=== PATIENT | female | born 1975 | race Caucasian/White ===

== ENCOUNTER → 2023-11-26 | Outpatient (REF) | payer BC ==
[~2023-11-26] MED LIST: HYDROCODONE PO; MORP15TA4 OR; MULTIVIT PO; NABU500T OR; OMEP20TA7 OR; ORENCIA INJ; PRED5EL OR; PRED5TAB OR
== END ==
LOC: M LAB REF 13:29
PROVIDERS: ATTEND Registered Nurse
DX: Z12.4 Encounter for screening for malignant neoplasm of cervix (principal); R87.615 Unsatisfactory cytologic smear of cervix
CPT/HCPCS: 87624; G0123

== ENCOUNTER → 2023-12-25 | Outpatient (REF) | payer OTHER | LOC: M LAB REF 12:50 | PROVIDERS: ATTEND Registered Nurse | DX: Z12.4 Encounter for screening for malignant neoplasm of cervix (principal); R87.612 Low grade squamous intraepithelial lesion on cytologic smear of cervix (LGSIL) ==

== ENCOUNTER → 2025-08-10 | Outpatient (REF) | LOC: M SLEEP HO 11:00 | PROVIDERS: ATTEND Student in an Organized Health Care Education/Training Program | DX: G47.33 Obstructive sleep apnea (adult) (pediatric) (principal) ==